=== PATIENT | male | born 1990 | race Caucasian/White ===

== ENCOUNTER → 2017-03-17 | Outpatient (REF) ==
[~2017-03-17] MED LIST: AZIT-18 PO; HYDR-4309 PO; PROM-110 PO
[2017-03-17 13:37] LABS: LDL CHOLESTEROL 117 mg/dl
== END ==
DX: Z02.9 Encounter for administrative examinations, unspecified (principal)

== ENCOUNTER → 2017-10-11 | Outpatient (CLI) | payer OTHER ==
[2017-10-11 14:59] LABS: PLATELET COUNT, AUTOMATED 295 K/uL (150-450)
== END ==
LOC: LAB 14:37
PROVIDERS: ATTEND Internal Medicine
DX: R94.5 Abnormal results of liver function studies (principal); R22.1 Localized swelling, mass and lump, neck
CPT/HCPCS: 36415; 82040; 82247; 82310; 82374; 82435; 82565; 82947; 84075; 84132; 84155; 84295; 84443; 84450; 84460; 84520; 85025

== ENCOUNTER → 2017-10-16 | Outpatient (CLI) | payer OTHER ==
--- NOTE | 2017-10-16 17:30 | RADIOLOGY IMAGING REPORT ---
[place] [facility] [place] Eugene Lopez : 1990 MR: [id number] V: [id number] EXAM DATE: ORDERING PHYSICIAN: PERRY BARRAGAN TECHNOLOGIST: Location: [facility] Patient: Eugene Lopez : 1990 Visit/Account:[id number] Date of Sevice: 10/16/2017 Exam type: SOFT TISSUE HEAD NECK History: lump rt side of thyroid Comparison: None. Findings: In zone two on the right there is a 6.3 x 4.4 x 8 mm fatty replaced lymph node in addition to a 1.1 x 1.6 x 0.5 cm fatty replaced lymph node In zone one left-sided the neck there is a 1.1 x 1.4 x 0.4 cm lymph node. In zone two on the left th ere is a 7 x 7 x 5 mm fatty replaced lymph node The right lobe of the thyroid is greater than 6 cm long The left lobe of the thyroid is 5.5 cm long IMPRESSION: 1. There are two level two lymph nodes on the right both appear fatty replaced as described above There is a level one and level two lymph node on the left which appear unremarkable Right lobe the thyroid is greater than 6 cm long. The left lobe of the thyroid is 5.5 cm long Report Dictated By: Malika Handy MD at 10/16/2017 5:22 PM Report E-Signed By: Malika Handy MD at 10/16/2017 5:26 PM WSN:[email or web address]
== END ==
LOC: US 01:11
PROVIDERS: ATTEND Internal Medicine
DX: E01.0 Iodine-deficiency related diffuse (endemic) goiter (principal); R59.0 Localized enlarged lymph nodes
CPT/HCPCS: 76536

== ENCOUNTER → 2018-07-20 | Outpatient (REF) ==
[~2018-07-20] MED LIST changes: -HYDR-4309 PO; +HYDR-653 PO
[2018-07-20 09:03] LABS: LDL CHOLESTEROL 64 mg/dl
== END ==
DX: Z02.9 Encounter for administrative examinations, unspecified (principal)